=== PATIENT | male | born 1965 | race Caucasian/White ===

== ENCOUNTER 2017-06-04 20:37 | Emergency (ER) | payer OTHER ==
[2017-06-04] MEDS: LORAZEPAM 1 MG TAB PO (23:08)
[2017-06-04 23:37] LABS: ADD MAN DIFF? NO
[2017-06-04 23:38] LABS: BASOPHIL # 0.1 10^3/ul (0.0-0.1); EOSINOPHILS # 0.2 10^3/ul (0.0-0.5); HEMATOCRIT 48.5 % (42.0-52.0); HEMOGLOBIN 15.3 g/dl (14.0-18.0); LYMPHOCYTES # 2.3 10^3/ul (0.8-2.9); LYMPHOCYTES % 27.8 % (15.0-51.0); MEAN CORPUSCULAR HEMOGLOBIN 27.6 pg (29.0-33.0); MEAN CORPUSCULAR HGB CONC 31.5 g/dl (32.0-37.0); MEAN CORPUSCULAR VOLUME 87.5 fl (82.0-101.0); MEAN PLATELET VOLUME 10.3 fl (7.4-10.4); MONOCYTE # 0.6 10^3/ul (0.3-0.9); MONOCYTES % 7.7 % (0.0-11.0); NEUTROPHILS % 61.1 % (39.0-77.0); PLATELET COUNT 295 10^3/UL (140-415); RED BLOOD COUNT 5.54 10^6/ul (4.70-6.10); RED CELL DISTRIBUTION WIDTH 15.8 % (11.5-14.5)
[2017-06-04 23:38] LABS: WHITE BLOOD COUNT 8.2 10^3/ul (4.8-10.8)
[2017-06-04 23:56] LABS: ALANINE AMINOTRANSFERASE 75 IU/L (13-69); ALBUMIN 4.1 g/dl (3.3-4.9); ALBUMIN/GLOBULIN RATIO 1.28; ALKALINE PHOSPHATASE 98 IU/L (42-121); ANION GAP 20 (8-16); ASPARTATE AMINO TRANSFERASE 46 IU/L (15-46); BILIRUBIN,INDIRECT 0.2 mg/dl (0-1.1); BILIRUBIN,TOTAL 0.2 mg/dl (0.2-1.3); BLOOD UREA NITROGEN 5 mg/dl (7-20); CALCIUM 9.5 mg/dl (8.4-10.2); CARBON DIOXIDE 27 mmol/L (21-31); CHLORIDE 104 mmol/L (97-110); CREATININE 1.03 mg/dl (0.61-1.24); GLUCOSE 115 mg/dl (70-220); LIPASE 69 U/L (23-300); POTASSIUM 4.9 mmol/L (3.5-5.1); SODIUM 146 mmol/L (135-144); TOTAL PROTEIN 7.3 g/dl (6.1-8.1)
[2017-06-05 01:02] LABS: OPIATES Positive (NEGATIVE)
[2017-06-05 01:08] LABS: AMPHETAMINE/METHAMPHETAMINE Negative (NEGATIVE); BARBITURATES Negative (NEGATIVE); BENZODIAZEPINES Positive (NEGATIVE); COCAINE Negative (NEGATIVE)
[2017-06-05 01:27] LABS: CANNABINOIDS NEGATIVE (NEGATIVE)
== END 2017-06-05 01:23 | disposition home or self-care (01) ==
LOC: FTE 20:37 → E/R 06-05 01:23
DX: F10.120 Alcohol abuse with intoxication, uncomplicated (principal); R40.2252 Coma scale, best verbal response, oriented, at arrival to emergency department; I10 Essential (primary) hypertension; R40.2142 Coma scale, eyes open, spontaneous, at arrival to emergency department; R40.2362 Coma scale, best motor response, obeys commands, at arrival to emergency department
CPT/HCPCS: 80053; 80306; 80307; 83690; 85025; 99283

== ENCOUNTER 2017-06-09 03:34 | Emergency (ER) | payer MEDICAID, OTHER ==
[2017-06-09] MEDS ORDERED: morphine 4 MG/ML VIAL IV (07:35)
[2017-06-09] MEDS ORDERED: ONDANSETRON 4 MG INJ IV (07:35)
[2017-06-09 08:10] LABS: ADD MAN DIFF? NO
[2017-06-09 08:12] LABS: BASOPHIL # 0.1 10^3/ul (0.0-0.1); BASOPHILS % 0.8 % (0.0-2.0); EOSINOPHILS % 0.1 % (0.0-7.0); HEMATOCRIT 47.9 % (42.0-52.0); HEMOGLOBIN 15.7 g/dl (14.0-18.0); LYMPHOCYTES # 1.2 10^3/ul (0.8-2.9); LYMPHOCYTES % 10.7 % (15.0-51.0); MEAN CORPUSCULAR HEMOGLOBIN 27.4 pg (29.0-33.0); MEAN CORPUSCULAR HGB CONC 32.8 g/dl (32.0-37.0); MEAN CORPUSCULAR VOLUME 83.6 fl (82.0-101.0); MEAN PLATELET VOLUME 9.3 fl (7.4-10.4); MONOCYTE # 0.7 10^3/ul (0.3-0.9); NEUTROPHIL # 9.2 10^3/ul (1.6-7.5); PLATELET COUNT 400 10^3/UL (140-415); RED BLOOD COUNT 5.73 10^6/ul (4.70-6.10); RED CELL DISTRIBUTION WIDTH 16.2 % (11.5-14.5)
[2017-06-09 08:12] LABS: WHITE BLOOD COUNT 11.2 10^3/ul (4.8-10.8)
[2017-06-09 08:32] LABS: ALANINE AMINOTRANSFERASE 67 IU/L (13-69); ALBUMIN 4.6 g/dl (3.3-4.9); ALBUMIN/GLOBULIN RATIO 1.21; ALKALINE PHOSPHATASE 150 IU/L (42-121); AMYLASE 70 U/L (11-123); ANION GAP 27 (8-16); ASPARTATE AMINO TRANSFERASE 74 IU/L (15-46); BILIRUBIN,INDIRECT 0.7 mg/dl (0-1.1); BILIRUBIN,TOTAL 0.7 mg/dl (0.2-1.3); BLOOD UREA NITROGEN 15 mg/dl (7-20); CARBON DIOXIDE 24 mmol/L (21-31); CHLORIDE 96 mmol/L (97-110); CREATININE 0.98 mg/dl (0.61-1.24); GLUCOSE 134 mg/dl (70-220); LIPASE 96 U/L (23-300); POTASSIUM 3.9 mmol/L (3.5-5.1); SODIUM 143 mmol/L (135-144); TOTAL PROTEIN 8.4 g/dl (6.1-8.1)
[2017-06-09 08:36] LABS: INR 0.93; PROTIME 12.5 Sec (11.9-14.9)
[2017-06-09 08:37] LABS: PARTIAL THROMBOPLASTIN TIME 28.8 Sec (25.0-35.0)
[2017-06-09 08:57] LABS: TROPONIN-I < 0.012 ng/ml (0.00-0.12)
[2017-06-09] MEDS: morphine 4 MG/ML VIAL IM (09:07)
[2017-06-09] MEDS: ONDANSETRON (ODT) 4 MG TAB ODT (09:07)
[2017-06-09] MEDS: FAMOTIDINE 20 MG INJ IV (10:04)
[2017-06-09] MEDS: PANTOPRAZOLE 40 MG INJ IV (10:04)
[2017-06-09] MEDS: LORAZEPAM 1 MG TAB PO (10:05)
[2017-06-09] MEDS: SOD CHLORIDE 0.9% 1,000 ML IV (10:06)
[2017-06-09] MEDS: CHLORDIAZEPOXIDE 25 MG CAP PO (10:36)
[2017-06-09] MEDS: LORAZEPAM 2 MG INJ IV (10:37)
[2017-06-09] MEDS: MULTIVITAMINS 10 ML, THIAMINE 100 MG, FOLIC ACID 1 MG, MAGNESIUM SULFATE 2 GM in SOD CH... IV (11:13)
[2017-06-09] MEDS: HYDROCODONE/APAP (10/325) TAB PO (14:55)
[2017-06-09] MEDS: LABETALOL HCL 20MG INJ IV (14:56)
[2017-06-09 18:17] LABS: URINE PH (Dip) POC 7.5 (5.0-8.5)
[2017-06-09 18:17] LABS: URINE BLOOD (Dip) POC Trace-intact (NEGATIVE); URINE GLUCOSE (Dip) POC Negative (NEGATIVE); URINE KETONES (Dip) POC 2+ (NEGATIVE); URINE LEUKOCYTE EST (Dip) POC Trace (NEGATIVE); URINE NITRITE (Dip) POC Negative (NEGATIVE); URINE TOTAL PROTEIN POC Negative (NEGATIVE)
== END 2017-06-09 13:00 | disposition home or self-care (01) ==
LOC: FTE 13:00
DX: S09.90XA Unspecified injury of head, initial encounter (principal); F10.920 Alcohol use, unspecified with intoxication, uncomplicated; R55 Syncope and collapse; W01.0XXA Fall on same level from slipping, tripping and stumbling without subsequent striking against object, initial encounter; Y92.9 Unspecified place or not applicable
CPT/HCPCS: 70450; 71045; 80053; 80306; 81003; 82150; 83690; 84484; 85025; 85610; 85730; 86850; 86900; 86901; 93005; 96374; 96375; 99285-25